=== PATIENT | male | born 1985 ===

== ENCOUNTER 2024-06-26 11:08 | Emergency (ER) | payer SELFPAY ==
[2024-06-26 11:13] VITALS: BP 167/93; PULSE 81; RESP 18; TEMP 36.6; O2SAT 97; BMI 28.9
--- NOTE | 2024-06-26 11:13 | ED.ABDPAIN ---
HPI - Abdominal Pain General Chief Complaint: Abdominal Pain Stated Complaint: Abd discomfort Time Seen by Provider: 06/26/24 12:21 History of Present Illness ED Provider: Hal HPI narrative: 38 y/o M patient; without significant PMH; presents from home reporting two days of upper abdominal pain associated with nausea without vomiting. Otherwise denies: diarrhea, fever or chills, SOB, cough/congestion. No known sick contacts. No prior abdominal surgeries. Occasional alcohol use. Denies NSAID use. Non-smoker. Related Data Previous Rx's ?Medication ?Instructions ?Recorded famotidine 40 mg tablet 40 mg PO DAILY #30 tabs 06/26/24 ondansetron HCl 4 mg tablet 4 mg PO Q8H PRN nausea and 06/26/24 vomiting #14 tabs Allergies Allergy/AdvReac Type Severity Reaction Status Date / Time No Known Allergies Allergy Verified 06/26/24 11:15 Review of Systems Review of Systems Yes all other systems are reviewed and are negative Denies Sensory deficit (Neuro) [facility] Past Medical History Attestation statement: The following information was validated with the patient. Source: old records reviewed Social History Social History Advance Directives: No Physical Exam ED Vital Signs: Vital Signs - 24 hr 06/26/24 11:13 06/26/24 12:17 06/26/24 14:13 Temperature 97.9 F Pulse Rate 81 68 74 Respiratory Rate 18 16 16 Blood Pressure 167/93 H 159/95 H 152/94 H Pulse Oximetry 97 100 98 Oxygen Delivery Method Room Air Room Air Room Air BMI result Body Mass Index 28.9 Patient is afebrile and hemodynamically stable. Const General: cooperative and comfortable Orientation/consciousness: patient oriented x3 HENMT Head: Yes normal to inspection and Yes atraumatic Eyes General: appearance normal, both eyes and all related structures Pupils: Equal, round and reactive pupils present EOM: EOMs intact bilaterally Neck Neck: Yes normal visual inspection, Yes full ROM, Yes supple and No tender Chest Chest palpation & inspection: normal inspection of the chest and normal palpation of entire chest wall Resp Effort & Inspection: normal respiratory effort, able to speak in complete sentences and no respiratory distress Auscultation: clear to auscultation bilaterally Cardio Rate: regular rate Rhythm: regular rhythm Peripheral pulses: Peripheral pulses 2+ throughout GI Inspection: Yes normal to inspection, No Abdominal wall edema and No distended Palpation (GI): Soft to palpation, not firm, nontender, no guarding and not rigid Auscultation: normal bowel sounds Back/Spine/Pelvis Back: No back tenderness Neuro General: patient oriented x3 Cranial nerves: Yes Equal, round and reactive pupils present Motor exam (neuro): 5/5 motor strength present throughout Sensory Exam: No Sensory deficit (Neuro) Course Course Course Narrative: This is a Rapid Medical Examination (RME) performed by Joseluis Bender PA-C in triage. Full HPI, ROS, assessment and treatment plan per primary provider in the Main ED. 38 yo Trinid[place] speaking male presenting to the ER for evaluation of upper abdominal pain and nausea x2 days. History of gastritis and it feels similar. No vomiting or diarrhea. VSS in triage. He appears well. Plan: lab workup, imaging is deferred for now Reevaluation(s) Reevaluation #1: Patient is afebrile and hemodynamically stable. Reviewed triage labs. No leukocytosis. Normal lipase. Magnesium 1.4 - repleted. UA unremarkable. COVID negative. Provided symptom control with famotidine. Plan: Discharge to home with PCP and GI follow up Return precautions given Rx famotidine and zofran sent to pharmacy Medical Decision Making Lab Data 06/26/24 11:33 06/26/24 11:33 Labs: Lab Results 06/26/24 Range/Units 11:33 WBC 5.2 (4.8-10.8) X10*3/uL RBC 4.72 (4.60-5.80) X10*6/uL Hgb 14.7 (14.0-18.0) g/dl Hct 40.8 L (42.0-52.0) % MCV 86.4 (80.0-98.0) fL MCH 31.1 (27.0-33.0) pg MCHC 36.0 (31.0-36.0) g/dl RDW 12.2 (11.0-16.0) % Plt Count 222 (160-400) X10*3/uL MPV 9.6 (9.4-12.4) fL Immature Gran % (Auto) 0.6 H (0.0-0.4) % Neut % (Auto) 66.8 (45-73) % Lymph % (Auto) 22.5 (20-40) % Rains % (Auto) 8.7 (2-11) % Eos % (Auto) 0.6 (0-4) % Baso % (Auto) 0.8 (0-2) % Lymph # (Auto) 1.2 (1.2-4.9) X10*3/uL Rains # (Auto) 0.5 (0.1-1.2) X10*3/uL Eos # (Auto) 0.0 (0.0-0.4) X10*3/uL Baso # (Auto) 0.0 (0.0-0.2) X10*3/uL Abs Immat Gran (auto) 0.03 (0.00-0.03) X10*3/uL Absolute Neuts (auto) 3.5 (2.0-8.3) x10*3/uL Absolute Nucleated RBC 0.000 (0.0-0.012) X10*3/uL Nucleated RBC % (auto) 0.0 (0.0-0.2) /100WBC Sodium 142 (135-145) mmol/L Potassium 3.6 (3.3-5.1) mmol/L Chloride 105 (96-108) mmol/L Carbon Dioxide 28 (22-29) mmol/L Anion Gap 13 (12-20) BUN 9 (9-16) mg/dL Creatinine 0.85 (0.5-1.4) mg/dL Estim Creat Clear Calc 107.9 Estimated GFR > 60 Random Glucose 104 (60-115) mg/dL Calcium 8.5 (8.4-10.2) mg/dL Magnesium 1.4 L* (1.6-2.6) mg/dL Total Bilirubin 0.7 (0.0-1.0) mg/dL Direct Bilirubin 0.2 (0.0-0.5) mg/dL AST 34 (5-37) U/L ALT 46 H (0-40) U/L Alkaline Phosphatase 84 (39-117) U/L Total Protein 7.2 (6.5-8.0) g/dL Albumin 4.0 (3.5-5.0) g/dL Lipase 22 (8-78) U/L Urine Color Yellow Urine Appearance Clear Urine pH 7.5 (5.0-9.0) Ur Specific [place] 1.015 (1.005-1.025) Urine Protein Negative (Neg-Trace) mg/dL Urine Glucose (UA) Negative (Negative) mg/dL Urine Ketones Negative (Negative) mg/dL Urine Blood Negative (Negative) Urine Nitrite Negative (Negative) Ur Leukocyte Esterase Negative (Negative) COVID-19 (ERIKA) Negative (Negative) COVID-19 Clin Com See Note Discharge Plan Discharge Clinical Impression: Abdominal pain Patient Disposition: Home, Self-Care Instructions: Gastritis (DC) Additional Instructions: As we discussed, you were seen for abdominal pain. Your labs were reassuring. A prescription for a medication called Famotidine was sent to your pharmacy. Take this once a day until you follow up with GI. A prescription for a medication called Zofran was sent to your pharmacy. This is for nausea. Take this every 8 hours if you are having nausea. Follow up with GI and your PCP within the next 1 - 2 days for re-evaluation. Return to the emergency department for: Worsening abdominal pain Fever Vomiting Prescriptions: New famotidine 40 mg tablet 40 mg PO DAILY Qty: 30 0RF ondansetron HCl 4 mg tablet 4 mg PO Q8H PRN (Reason: nausea and vomiting) Qty: 14 0RF Referrals: Linda Howell MD [Physician] - 2 days Print Language: Trinidadian
[2024-06-26 11:38] LABS: MANUAL DIFF FLAG NO
[2024-06-26 11:40] LABS: Basophils Percent Auto 0.8 % (0-2); Eosinophils Percent Auto 0.6 % (0-4); Hematocrit 40.8 % (42.0-52.0); Hemoglobin 14.7 g/dl (14.0-18.0); Imm Gran Abs Auto 0.03 X10*3/uL (0.00-0.03); Imm Gran Pct Auto 0.6 % (0.0-0.4); Lymphocytes Absolute Auto 1.2 X10*3/uL (1.2-4.9); Lymphocytes Percent Auto 22.5 % (20-40); Mean Corpuscular Hemoglobin 31.1 pg (27.0-33.0); Mean Corpuscular Volume 86.4 fL (80.0-98.0); Mean Platelet Volume 9.6 fL (9.4-12.4); Monocytes Absolute Auto 0.5 X10*3/uL (0.1-1.2); Monocytes Percent Auto 8.7 % (2-11); Neutrophils Absolute Auto 3.5 x10*3/uL (2.0-8.3); Neutrophils Percent Auto 66.8 % (45-73); Platelet Count 222 X10*3/uL (160-400); Red Blood Count 4.72 X10*6/uL (4.60-5.80); Red Cell Distribution Width 12.2 % (11.0-16.0); White Blood Count 5.2 X10*3/uL (4.8-10.8)
[2024-06-26 11:41] LABS: Appearance Urine Clear; Color Urine Yellow; Glucose Urine UA Negative (Negative); Leukocyte Esterase Urine Negative (Negative); Nitrite Urine Negative (Negative); PH 7.5 (5.0-9.0); Specific Gravity - Urine 1.015 (1.005-1.025); Urine Blood Negative (Negative); Urine Ketones Negative (Negative); Urine Protein Negative (Neg-Trace)
[2024-06-26 11:55] LABS: COVID-19 Test Negative (Negative); IDNOW Serial# 152EDE1D
[2024-06-26 11:57] LABS: Alanine Aminotransferase 46 U/L (0-40); Alkaline Phosphatase 84 U/L (39-117); Anion Gap 13 (12-20); Aspartate Amino Transferase 34 U/L (5-37); Bilirubin Direct 0.2 mg/dL (0.0-0.5); Bilirubin Total 0.7 mg/dL (0.0-1.0); Blood Urea Nitrogen 9 mg/dL (9-16); Calcium 8.5 mg/dL (8.4-10.2); Carbon Dioxide 28 mmol/L (22-29); Chloride 105 mmol/L (96-108); Creatinine Clr Calc Pharmacy 107.9; Estimated Glomerular Filt Rate > 60; Glucose Random 104 mg/dL (60-115); Lipase 22 U/L (8-78); Potassium 3.6 mmol/L (3.3-5.1); Sodium 142 mmol/L (135-145); Total Protein 7.2 g/dL (6.5-8.0)
[2024-06-26 11:59] LABS: Magnesium 1.4 mg/dL (1.6-2.6)
[2024-06-26 12:17] VITALS: BP 159/95; PULSE 68; RESP 16; O2SAT 100
[2024-06-26 14:13] VITALS: BP 152/94; PULSE 74; RESP 16; O2SAT 98
[2024-06-26] MEDS: Famotidine 20 MG TABLET 40 MG PO (16:05)
[2024-06-26] MEDS: Magnesium Oxide 400 MG TABLET 800 MG PO (16:05)
[2024-06-26 16:51] VITALS: BP 150/72; PULSE 83; RESP 16; TEMP 36.4; O2SAT 96
== END 2024-06-26 16:52 | disposition home or self-care (01) ==
PROVIDERS: Physician Assistant; Emergency Provider Emergency Medicine
DX: R10.10 Upper abdominal pain, unspecified (principal); R11.0 Nausea; Z11.52 Encounter for screening for COVID-19; Z79.899 Other long term (current) drug therapy
CPT/HCPCS: 80048; 80076; 81003; 83690; 83735; 85025; 87635; 99283; 99284

== ENCOUNTER 2025-10-06 06:47 | Inpatient (IN) | payer MEDICAID, OTHER, SELFPAY ==
[2025-10-06] VITALS (14 sets, daily range): BP systolic 107–154; BP diastolic 61–97; PULSE 70–110; RESP 16–20; TEMP 36.3–37.9; O2SAT 91–99; BMI 30.4; BMI 30.6
--- NOTE | ~2025-10-06 | CT_ITS ---
CLINICAL HISTORY: RLQ pain CT abdomen and pelvis with contrast Comparison: None provided Findings: Bibasilar dependent atelectasis. The gallbladder and solid organs are within normal limits. No renal stones. Fluid-filled nondilated nonspecific small-bowel loops noted. Distended fluid and air-filled inflamed appendix measuring up to 1.5 cm in diameter compatible with acute appendicitis. No perforation or abscess noted. Urinary bladder wall thickening. Cystitis or other bladder pathology can not be excluded. The bones are intact. Degenerative change noted within the spine. IMPRESSION: 1. Distended fluid and air-filled inflamed appendix measuring up to 1.5 cm in diameter compatible with acute appendicitis. 2. Urinary bladder wall thickening. Cystitis or other bladder pathology can not be excluded. This document has been electronically signed by: Britton Mccarty MD on 10/06/2025 09:19:20
--- OUTSIDE RECORDS SUMMARY | 2025-10-06 07:28 | XMS_ITS | Clinical Summary ---
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 Role Phone Unavailable Primary Care Provider Unavailabl e Social History Tobacco Use Types Packs/Day Years Used Date Smoking Tobacco: Never Assessed Sex and Gender Information Value Date Recorded Sex Assigned at Not on file Legal Sex Male 3:09 PM EDT Gender Identity Not on file Sexual Orientation Not on file Plan of Treatment Health Maintenance Due Date Last Done Comments Depression Screening 1983 Lipid Panel 1983 Disability Screening 1983 Alcohol/Substance Use Screening 1995 Tobacco Screening 1995 Family Planning (PISQ) 1998 HPV Vaccines (1 - Male 3-dos e series) 1998 DTaP/Tdap/Td Vaccines (1 - Tdap) 2002 Hepatitis B Vaccines (1 of 3 - 19+ 3-dose series) 2002 COVID-19 Vaccine (1 - 2024-2 6 season) 2025 Influenza Vaccine (#1) 2025 Zoster Vaccines (1 of 2) 2033 RSV Patients and Pa tients Aged 60 years or older (1 - 1-dose 75+ series) 2058 HIB Vaccines Aged Out No longer eligi ble based on patient's age to complete this topic Hepatitis A Vaccines Aged Out No long er eligible based on patient's age to complete this topic IPV Vaccines Aged Out No longer eligi ble based on patient's age to complete this topic Meningococcal B Vaccine Aged Out No l onger eligible based on patient's age to complete this topic Meningococcal Vaccine Aged Out No jessica brenda eligible based on patient's age to complete this topic Pneumococcal Vaccine: Pediat rics (0 to 5 Years) and At-Risk Patients (6 to 49) Years Aged Out No longer eligible b ased on patient's age to complete this topic RSV under 20 months Aged Out No longe r eligible based on patient's age to complete this topic Rotavirus Vaccines Aged Out No longer eligible based on patient's age to complete this topic
--- OUTSIDE RECORDS SUMMARY | 2025-10-06 07:28 | XMS_ITS | Encounter Summary ---
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 Role Phone Unavailable Primary Care Provider Unavailabl e Reason for Visit * Reason Onset Date Comments New Patient Appt 04/11/2023 Encounter Details Date Type Department Care Team (Late st Contact Info) Description 04/11/2023 Telephone [facility] [address], [place] [phone] Xavier Travis MD [address] [place], [place] [phone] New Patient Appt Social History Tobacco Use Types Packs/Day Years Used Date Smoking Tobacco: Never Assessed Sex and Gender Information Value Date Recorded Sex Assigned at Not on file Legal Sex Male 3:09 PM EDT Gender Identity Not on file Sexual Orientation Not on file documented as of this encounter Miscellaneous Notes * Telephone Encounter - Gautam Cartwright - 04/11/2023 3:09 PM EDT Tc to Glenn, to Offer DBA Appt; Pt responded and was informed that we do not take his insurance toplease change to C3; once the process is complete, to please call back at [phone] to get appt as soon as possible. documented in this encounter Plan of Treatment Not on file documented as of this encounter Visit Diagnoses Not on filedocumented in this encounter
[2025-10-06 07:33] LABS: Hematocrit 46.2 % (42.0-52.0); Hemoglobin 16.3 g/dl (14.0-18.0); Imm Gran Abs Auto 0.06 X10*3/uL (0.00-0.03); Imm Gran Pct Auto 0.4 % (0.0-0.4); Lymphocytes Absolute Auto 0.9 X10*3/uL (1.2-4.9); MANUAL DIFF FLAG NO; Mean Corpuscular HGB Conc 35.3 g/dl (31.0-36.0); Mean Corpuscular Hemoglobin 30.5 pg (27.0-33.0); Mean Corpuscular Volume 86.5 fL (80.0-98.0); NRBC Abs Auto 0.000 X10*3/uL (0.0-0.012); NRBC Pct Auto 0.0 /100WBC (0.0-0.2); Platelet Count 257 X10*3/uL (160-400); Red Blood Count 5.34 X10*6/uL (4.60-5.80); White Blood Count 14.1 X10*3/uL (4.8-10.8)
[2025-10-06 07:35] LABS: Appearance Urine Clear; Glucose Urine UA Negative (Negative); PH 6.5 (5.0-9.0); Specific Gravity - Urine 1.015 (1.005-1.025); UMIC TRIGGER UACC YES
--- NOTE | 2025-10-06 07:43 | ED_ITS ---
HPI - General Adult General Chief complaint: Abdominal Pain Stated complaint: side pain Time Seen by Provider: 10/06/25 07:43 History of Present Illness ED Provider: Arina BENSON narrative: The patient is an otherwise healthy 40-year-old who says that yesterday he had some generalized abdominal pain which has migrated to the right lower quadrant. He has a lot of pain in the right lower quadrant. He has had some nausea and vomiting although he is not currently nauseated. He does not think he has had a fever. He says he has no significant past medical history. He has never had any abdominal surgeries. No urinary symptoms. No chest pain, cough, sputum. Related Data Previous Rx's ?Medication ?Instructions ?Recorded famotidine 40 mg tablet 40 mg PO DAILY #30 tabs 06/10 05/02 ondansetron HCl 4 mg tablet 4 mg PO Q8H PRN nausea and 06/26/24 vomiting #14 tabs Allergies Allergy/AdvReac Type Severity Reaction Status Date / Time No Known Allergies Allergy Verified 10/06/25 07:02 Review of Systems 2 Review of Systems: Yes all other systems are reviewed and are negative [facility] Social History Social History Smoked in Last 30 Days: No Use of substances other than those prescribed or required for medical reasons: No Advance Directives: No Advance Directives Information Provided: Yes Do you have a plan to hurt others: No Plan Physical Exam ED Vital Signs: Vital Signs - 24 hr 10/06/25 07:00 10/06/25 07:35 10/06/25 07:50 Temperature 97.7 F 98.7 F Pulse Rate 70 71 73 Respiratory Rate 20 20 20 Blood Pressure 144/77 H 146/83 H 151/87 H Pulse Oximetry 98 96 97 Oxygen Delivery Method Room Air Room Air Room Air BMI result Body Mass Index 30.4 Const Other: The patient is awake, alert, pleasant, cooperative. He looks mildly uncomfortable. Orientation/consciousness: patient oriented x3 HENMT Other: The face is symmetrical. ?Mucous membranes moist. Eyes Other: Pupils are round equal, conjunctivae are clear, extraocular movements intact Neck Neck: Yes normal visual inspection and Yes full ROM Resp Effort & Inspection: normal respiratory effort Auscultation: clear to auscultation bilaterally Cardio Rate: regular rate Rhythm: regular rhythm Heart sounds: S1 normal heart sound present and S2 normal heart sound present GI Other: The patient is tender in the right lower quadrant. Skin Other: The skin is dry and unremarkable Neuro General: patient oriented x3, tone normal, moves all extremities, no focal motor deficits and CN's II-XI intact bilaterally Extrem Other: Extremities unremarkable Medications Administered Discontinued Medications Generic Name Dose Route Start Last Admin Trade Name Freq PRN Reason Stop Dose Admin Sodium Chloride 1,000 mls @ 999 mls/hr 10/06/25 08:00 10/06/25 08:24 Ns IV 10/06/25 09:00 999 mls/hr .Q1H1M JOSEPH Administration Iohexol 100 ml 10/06/25 08:22 10/06/25 08:22 Iohexol 350 Mg/Ml 100 Ml Infus..Btl IV 10/06/25 08:23 85 ml ONCE ONE Administration Morphine Sulfate 4 mg 10/06/25 07:49 10/06/25 08:24 Morphine Sulfate 4 Mg/Ml Cartridge IVPUSH 10/06/25 07:50 4 mg ONCE ONE Administration Protocol Ondansetron HCl 4 mg 10/06/25 07:49 10/06/25 08:24 Ondansetron Hcl 4 Mg/2 Ml Vial IVPUSH 10/06/25 07:50 4 mg ONCE ONE Administration Medical Decision Making Medical Decision Making [facility] Narrative: The patient is a generally healthy 40-year-old man on no medications and who has no previous abdominal surgeries who presents with a history highly suggestive of acute appendicitis and an exam consistent with possible acute appendicitis. A CT scan was done that shows unruptured [place] [id number]. The the patient was given morphine and ondansetron and IV fluids. Dr. Martínez of General surgery was informed and will be admitting the patient. We will also be giving ceftriaxone and metronidazole. Lab Data 10/06/25 07:25 10/06/25 07:25 Labs: Lab Results 10/06/25 Range/Units 07:25 WBC 14.1 H (4.8-10.8) X10*3/uL RBC 5.34 (4.60-5.80) X10*6/uL Hgb 16.3 (14.0-18.0) g/dl Hct 46.2 (42.0-52.0) % MCV 86.5 (80.0-98.0) fL MCH 30.5 (27.0-33.0) pg MCHC 35.3 (31.0-36.0) g/dl RDW 12.7 (11.0-16.0) % Plt Count 257 (160-400) X10*3/uL MPV 9.6 (9.4-12.4) fL Immature Gran % (Auto) 0.4 (0.0-0.4) % Neut % (Auto) 87.5 H (45-73) % Lymph % (Auto) 6.0 L (20-40) % [place] % (Auto) 5.6 (2-11) % Eos % (Auto) 0.1 (0-4) % Baso % (Auto) 0.4 (0-2) % Lymph # (Auto) 0.9 L (1.2-4.9) X10*3/uL [place] # (Auto) 0.8 (0.1-1.2) X10*3/uL Eos # (Auto) 0.0 (0.0-0.4) X10*3/uL Baso # (Auto) 0.1 (0.0-0.2) X10*3/uL Abs Immat Gran (auto) 0.06 H (0.00-0.03) X10*3/uL Absolute Neuts (auto) 12.3 H (2.0-8.3) x10*3/uL Absolute Nucleated RBC 0.000 (0.0-0.012) X10*3/uL Nucleated RBC % (auto) 0.0 (0.0-0.2) /100WBC Sodium 133 L (135-145) mmol/L Potassium 4.2 (3.3-5.1) mmol/L Chloride 97 (96-108) mmol/L Carbon Dioxide 25 (22-29) mmol/L Anion Gap 15 (12-20) BUN 11 (9-16) mg/dL Creatinine 0.80 (0.5-1.4) mg/dL Estim Creat Clear Calc 111.1 Estimated GFR > 60 Random Glucose 137 H (60-115) mg/dL Calcium 9.3 D (8.4-10.2) mg/dL Total Bilirubin 0.9 (0.0-1.0) mg/dL Direct Bilirubin 0.3 (0.0-0.5) mg/dL AST 39 H (5-37) U/L ALT 48 H (0-40) U/L Alkaline Phosphatase 118 H (39-117) U/L Total Protein 8.0 (6.5-8.0) g/dL Albumin 4.4 (3.5-5.0) g/dL Lipase 21 (8-78) U/L Urine Color Yellow Urine Appearance Clear Urine pH 6.5 (5.0-9.0) Ur Specific [place] 1.015 (1.005-1.025) Urine Protein 30 (1+) H (Neg-Trace) mg/dL Urine Glucose (UA) Negative (Negative) mg/dL Urine Ketones Negative (Negative) mg/dL Urine Blood Negative (Negative) Urine Nitrite Negative (Negative) Ur Leukocyte Esterase Negative (Negative) Urine RBC 0-2 (0-2) /HPF Urine WBC 0-5 (0-5) /HPF Ur Squamous Epith Cells 0-2 (0-2) /HPF Urine Bacteria None Seen (None Seen) Hyaline Casts 0-2 (0-2) /LPF Discharge Plan Discharge Patient Disposition: Admitted As Inpatient Print Language: [place] Island[place]
[2025-10-06 07:49] LABS: Alanine Aminotransferase 48 U/L (0-40); Albumin Level 4.4 g/dL (3.5-5.0); Alkaline Phosphatase 118 U/L (39-117); Anion Gap 15 (12-20); Aspartate Amino Transferase 39 U/L (5-37); Blood Urea Nitrogen 11 mg/dL (9-16); Calcium 9.3 mg/dL (8.4-10.2); Carbon Dioxide 25 mmol/L (22-29); Chloride 97 mmol/L (96-108); Creatinine Clr Calc Pharmacy 111.1; Estimated Glomerular Filt Rate > 60; Lipase 21 U/L (8-78); Potassium 4.2 mmol/L (3.3-5.1); Sodium 133 mmol/L (135-145); Total Protein 8.0 g/dL (6.5-8.0)
[2025-10-06] MEDS: iohexoL 350 MG/ML 100 ML INFUS..BTL IV (08:22)
[2025-10-06] MEDS: metroNIDAZOLE/NS 500 MG/100 ML PIGGYBACK 100 MG IV (10:13)
--- NOTE | 2025-10-06 11:38 | PM.HPGS ---
History of Present Illness History of Present Illness Date of Service: 10/06/25 Chief complaint: side pain Narrative: Glenn Platt is a 40 year old male 2-3 day history of abdominal pain that originated in periumbilical region gradually localized to the right lower quadrant. He denies any fevers chills nausea or vomiting. He denies any history of abdominal trauma or previous abdominal surgery. CT scan of his abdomen and pelvis was indicative of acute appendicitis. Review of Systems Review of Systems: Yes all other systems are reviewed and are negative [facility] Social History Social History Smoked in Last 30 Days: No Use of substances other than those prescribed or required for medical reasons: No Advance Directives: No Advance Directives Information Provided: Yes Do you have a plan to hurt others: No Plan Meds Allergies Allergy/AdvReac Type Severity Reaction Status Date / Time No Known Allergies Allergy Verified 10/06/25 07:02 Physical Exam Vital Signs: Vital Signs: Last Vital Signs Temp 98.7 F 10/06/25 07:50 Pulse 79 10/06/25 10:27 Resp 18 10/06/25 10:27 BP 154/88 H 10/06/25 10:27 Pulse Ox 98 10/06/25 10:27 O2 Del Method Room Air 10/06/25 10:27 BMI result Body Mass Index 30.4 Const: General: cooperative and no acute distress Nutritional Appearance: obese Orientation/consciousness: oriented to person, oriented to place and oriented to time HEENT: Head: Yes normal to inspection, Yes normocephalic and Yes atraumatic Eyes: General: appearance normal, both eyes and all related structures Pupils: Equal, round and reactive pupils present EOM: EOMs intact bilaterally Neck: Neck: Yes normal visual inspection Chest: Chest palpation & inspection: normal inspection of the chest Resp: Effort & Inspection: normal respiratory effort and able to speak in complete sentences Cardio: Rate: regular rate Rhythm: regular rhythm GI: Other: Obese soft diffusely nontender nondistended. Tender to palpation that McBurney's point no scars masses or hernias. No evidence of hepatosplenomegaly. Neuro: General: oriented to person, oriented to place and oriented to time Cranial nerves: Yes CN's II-XII intact bilaterally and Yes Equal, round and reactive pupils present Results Results Labs: Short CBC 10/06/25 Range/Units 07:25 WBC 14.1 H (4.8-10.8) X10*3/uL Hgb 16.3 (14.0-18.0) g/dl Hct 46.2 (42.0-52.0) % Plt Count 257 (160-400) X10*3/uL BMP 10/06/25 07:25 Sodium 133 L Potassium 4.2 Chloride 97 Carbon Dioxide 25 BUN 11 Creatinine 0.80 Calcium 9.3 D Liver Function 10/06/25 Range/Units 07:25 Total Bilirubin 0.9 (0.0-1.0) mg/dL Direct Bilirubin 0.3 (0.0-0.5) mg/dL AST 39 H (5-37) U/L ALT 48 H (0-40) U/L Alkaline Phosphatase 118 H (39-117) U/L Albumin 4.4 (3.5-5.0) g/dL Urine 10/06/25 Range/Units 07:25 Urine Color Yellow Urine Appearance Clear Urine pH 6.5 (5.0-9.0) Ur Specific [place] 1.015 (1.005-1.025) Urine Protein 30 (1+) H (Neg-Trace) mg/dL Urine Glucose (UA) Negative (Negative) mg/dL Assessment and Plan (1) Acute appendicitis: Qualifiers: Acute appendicitis type: other Qualified Code(s): K35.890 - Other acute appendicitis without perforation or gangrene Status: Acute Plan With the assistance manager of network I reviewed with the patient the nature of laparoscopic possible open appendectomy. I also reviewed with him in detail of the risks are involved. These include but are not limited to the risk of bleeding the risks infection the risk of damage to surrounding structures risk of conversion to an open procedure the risks of chronic pain the risk of appendiceal stump leak and the risk that he might need further procedures in the future all reviewed with him in detail. He told me he understood. He told me he considered his options. He told me understood and accepted the risks of surgery and lastly indicated that he wished to proceed with operative intervention. Quality Stroke Does the patient have a stroke diagnosis?: No VTE Prior VTE?: No VTE Risk Level:: Surgical - low VTE Device Contraindication: N/A - Device Ordered VTE Drug Contraindication: N/A - Med Ordered Procedures Date of Service Date of Service: 10/06/25
--- NOTE | 2025-10-06 12:07 | PHA.MEDREC ---
Pharmacy Consult ? Medication Reconciliation Pharmacy has completed the medication reconciliation. Patient confirmed via paper coater that he does not take any medication at home.
--- NOTE | 2025-10-06 13:03 | HO.ANESPROP2 ---
HPI - Anesthesia Eval Consult details Narrative: Acute appendicitis PMFSH Active Problems Active Problems: All Active Problems Acute appendicitis (Acute) Family History Family history of problems with anesthesia: No Surgical History History of Problems with Anesthesia: No Social History Social History Smoked in Last 30 Days: No Use of substances other than those prescribed or required for medical reasons: No Advance Directives: No Advance Directives Information Provided: Yes Do you have a plan to hurt others: No Plan Meds Allergies Allergy/AdvReac Type Severity Reaction Status Date / Time No Known Allergies Allergy Verified 10/06/25 07:02 Home Medications ?Medication ?Instructions ?Recorded ?Confirmed ?Last Taken ?Type No Known Home Meds 10/06/25 10/06/25 Unknown History Exam Height,Weight and Vital Signs: Height 5 ft 3 in Weight 77.9 kg Last Vital Signs Temp 100.2 F 10/06/25 11:41 Pulse 91 10/06/25 11:41 Resp 16 10/06/25 11:41 BP 149/97 H 10/06/25 11:41 Pulse Ox 96 10/06/25 11:41 O2 Del Method Room Air 10/06/25 11:41 Pertinent Lab Results Pertinent Lab Results: Laboratory Tests 10/06/25 07:25 WBC 14.1 H RBC 5.34 Hgb 16.3 Hct 46.2 MCV 86.5 MCH 30.5 MCHC 35.3 RDW 12.7 Plt Count 257 MPV 9.6 Immature Gran % (Auto) 0.4 Neut % (Auto) 87.5 H Lymph % (Auto) 6.0 L [place] % (Auto) 5.6 Eos % (Auto) 0.1 Baso % (Auto) 0.4 Lymph # (Auto) 0.9 L [place] # (Auto) 0.8 Eos # (Auto) 0.0 Baso # (Auto) 0.1 Abs Immat Gran (auto) 0.06 H Absolute Neuts (auto) 12.3 H Absolute Nucleated RBC 0.000 Nucleated RBC % (auto) 0.0 Sodium 133 L Potassium 4.2 Chloride 97 Carbon Dioxide 25 Anion Gap 15 BUN 11 Creatinine 0.80 Estim Creat Clear Calc 111.1 Estimated GFR > 60 Random Glucose 137 H Calcium 9.3 D Total Bilirubin 0.9 Direct Bilirubin 0.3 AST 39 H ALT 48 H Alkaline Phosphatase 118 H Total Protein 8.0 Albumin 4.4 Lipase 21 Urine Color Yellow Urine Appearance Clear Urine pH 6.5 Ur Specific [place] 1.015 Urine Protein 30 (1+) H Urine Glucose (UA) Negative Urine Ketones Negative Urine Blood Negative Urine Nitrite Negative Ur Leukocyte Esterase Negative Urine RBC 0-2 Urine WBC 0-5 Ur Squamous Epith Cells 0-2 Urine Bacteria None Seen Hyaline Casts 0-2 Airway Mallampati Class: II TM Dist: >3cm Neck ROM: Full Loose/Missing/Broken Teeth: No Heart: RRR Lungs: CTA Assessment and Plan Assessment Anesthesia Assessment: Anesthesia Plan Discussed and Chart Reviewed Final Anesthetic Review Family History of Problems with Anesthesia: No History of Problems with Anesthesia: No NPO: Yes ASA Class: I and Emergency Final Preanesthetic Review: No Changes in Pt Med Stat, Meds/Allgs Chart Reviewed, Consent Obtained/Reviewed and Anes Risks/Benef Reviewed Patient Risk: Low Procedure Risk: Intermediate Anesthetic Plan Anesthetic Plan: GA Disposition: Standard PACU
--- NOTE | 2025-10-06 14:38 | W.PM.OPN ---
Operative Note Operative Note Date of Service: 10/06/25 Narrative: Preoperative diagnosis: Acute appendicitis Postoperative diagnosis: Same Procedure performed: Laparoscopic appendectomy Surgeon: Nikolai Martínez MD Specimen: Appendix Findings: Inflamed distended appendix Anesthesia: GETA Blood Loss: Minimal The patient was brought to the operating room and placed supine on the table. The arms and legs were cushioned appropriately and Venodyne boots were cycled. The patient's abdomen was then prepped and draped in the standard sterile fashion. After this approximately 20 cc of Marcaine without epinephrine were infused in the skin and soft tissue in the infraumbilical region of the patient's abdomen. Through this locally anesthetized site disturbances with created with a 11. Blade following Gerry's lines of the skin. It was carried down with a combination of blunt sharp dissection to the level of the umbilical root which was grasped elevated exposing the median raphe. A stab incision was then created the median raphe and gently spread with a Schnidt clamp allowing access to the peritoneal cavity. A 12 mm trocar port was then placed and CO2 gas was insufflated to create a pneumoperitoneum. Once the anterior abdominal pressure reached approximately 1 5 mmHg the intra-abdominal contents were surveyed with the laparoscope. There is no evidence of injury from placement of either local anesthetic or to the laparoscopic trocar port. Two more 5 mm ports were placed via separate stab incisions under direct observation of the laparoscope. They were in the suprapubic region in the left lower quadrant. The patient was then placed in Trendelenburg position with his left side down. An erythematous and edematous vermiform appendix was discovered in normal anatomic location coming off the base of the cecum. It was partially mobilized from surrounding soft tissue attachments with the Sonicision device and medialized from lateral attachments to the peritoneal cavity. The appendiceal mesentery was also taken down with the Sonicision device. This was done without difficulty. Once the appendix was completely skeletonized down to the base it was elevated in the single firing of an Endo-INÉS universal purple load 45 mm stapler was fired across the appendix at the base. The staple line was inspected and found to be completely intact with no bleeding gaps or openings. The appendix was then placed in Endo-Catch retrieval bag and delivered out of the patient's abdomen and passed off table as a specimen. Final laparoscopic surveillance revealed no evidence of hemorrhage or visceral injury or any other pathology. The fascia underlying the infraumbilical port was closed using 0 Polysorb on a UR 6 needle. All of the incisions were closed with buried 4-0 Monocryl in a subcuticular fashion. Steri-Strips and sterile occlusive dressings were applied. The patient tolerated procedure well, was recovered from anesthesia and taken to the recovery room in good condition. It should be noted that the sponge instrument needle counts were correct in the case and that I directly performed all aspects of the case. Also discussed the details case with the patient afterward.
[2025-10-06] MEDS: 0.9 % Sodium Chloride Flush 3 ML SYRINGE IVFLUSH ×2 (16:30→19:47)
[2025-10-07 03:27] VITALS: BP 122/81; PULSE 79; RESP 16; TEMP 36.5; O2SAT 96
--- NOTE | 2025-10-07 07:37 | PM.PNGS ---
Subjective Subjective Date of Service: 10/07/25 Interval history: He feels well. Has some mild umbilical soreness but has not required any analgesics overnight. Tolerating solid diet without nausea/vomiting. OOB and ambulating without difficulty. Had a BM this morning. Physical Exam Vital Signs: Vital Signs: Last Vital Signs Temp 97.7 F 10/07/25 03:27 Pulse 79 10/07/25 03:27 Resp 16 10/07/25 03:27 BP 122/81 10/07/25 03:27 Pulse Ox 96 10/07/25 03:27 O2 Del Method Room Air 10/07/25 03:27 O2 Flow Rate 2 10/06/25 15:30 BMI result Body Mass Index 30.6 Const: General: comfortable, no acute distress and alert Orientation/consciousness: patient oriented x3 Resp: Effort & Inspection: normal respiratory effort and able to speak in complete sentences GI: Other: dressings intact, moderate ecchymosis of umbilical incision, no erythema Inspection: No distended Palpation (GI): Soft to palpation, Tenderness to palpation present (GI) (mild umbilical tenderness) and no guarding Percussion: Yes normal to percussion Skin: General skin exam: no rashes or lesions noted Neuro: General: patient oriented x3 Extrem: General: Yes no clubbing, cyanosis or edema Objective Data Active Medications Acetaminophen (Acetaminophen 325 Mg Tablet) 650 mg PO Q6H PRN PRN Reason: Pain, Mild 1-3,fever,headache Calcium Carbonate (Calcium Carbonate 750 Mg Tab.Chew) 750 mg PO Q4H PRN PRN Reason: Heartburn Docusate Sodium (Docusate Sodium 100 Mg Capsule) 100 mg PO BID [facility] Last Admin: 10/06/25 19:46 Dose: 100 mg Documented By: CHUCKY Heparin Sodium (Porcine) (Heparin Sodium,Porcine 5,000 Unit/Ml Vial) 5,000 unit SUBCUT Q12H [facility] Last Admin: 10/07/25 02:18 Dose: 5,000 unit Documented By: CHUCKY Hydromorphone HCl (Hydromorphone Hcl 1 Mg/Ml Syringe) 0.5 mg IVPUSH Q4H PRN; Protocol PRN Reason: Pain, Severe (Pain Scale 7-10) Ketorolac Tromethamine (Ketorolac Tromethamine 30 Mg/Ml Vial) 30 mg IVPUSH Q6H PRN PRN Reason: Pain, Mild (Pain Scale 1-3) Magnesium Hydroxide (Milk Of Magnesia 30 Ml Oral.Susp) 30 ml PO DAILY PRN PRN Reason: Constipation Melatonin (Melatonin 3 Mg Tablet) 6 mg PO BEDTIME PRN PRN Reason: Insomnia Naloxone HCl (Naloxone Hcl 0.4 Mg/Ml Vial) 0.04 mg IVPUSH Q5M PRN PRN Reason: Excessive sedation or RR < 8 Omeprazole (Omeprazole 20 Mg Capsule.) 20 mg PO BID@0630,1630 [facility] Last Admin: 10/07/25 05:51 Dose: 20 mg Documented By: CHUCKY Ondansetron HCl (Ondansetron Hcl 4 Mg/2 Ml Vial) 4 mg IVPUSH Q8H PRN PRN Reason: Nausea and Vomiting Sodium Chloride (0.9 % Sodium Chloride Flush 3 Ml Syringe) 3 ml IVFLUSH QSHIFT [facility] Last Admin: 10/06/25 19:47 Dose: 3 ml Documented By: CHUCKY Temazepam (Temazepam 15 Mg Capsule) 15 mg PO BEDTIME PRN PRN Reason: Insomnia Labs 10/06/25 07:25 10/06/25 07:25 Labs: Laboratory Results - last 24 hr 10/06/25 07:25 Anion Gap 15 Estim Creat Clear Calc 111.1 Estimated GFR > 60 Random Glucose 137 H Calcium 9.3 D Total Bilirubin 0.9 Direct Bilirubin 0.3 AST 39 H ALT 48 H Alkaline Phosphatase 118 H Total Protein 8.0 Albumin 4.4 Lipase 21 Urine Color Yellow Urine Appearance Clear Urine pH 6.5 Ur Specific Byars 1.015 Urine Protein 30 (1+) H Urine Glucose (UA) Negative Urine Ketones Negative Urine Blood Negative Urine Nitrite Negative Ur Leukocyte Esterase Negative Urine RBC 0-2 Urine WBC 0-5 Ur Squamous Epith Cells 0-2 Urine Bacteria None Seen Hyaline Casts 0-2 Procedures Date of Service Date of Service: 10/07/25 Progress Note: A&P Assessment and plan (1) Acute appendicitis: Status: Acute (2) S/P laparoscopic appendectomy: Status: Acute Plan POD #1 s/p lap appy for acute uncomplicated appendicitis. Patient is doing well post op- tolerating solid diet with good pain control. Hemodynamically stable with benign abd exam with appropriate post op tenderness. Feels ready for dc to home. Stable for dc to home today with f/u in office in 1 week. Time Spent With Patient Time: Total time managing care of this patient today ____ minutes. Quality Stroke Does the patient have a stroke diagnosis?: No VTE Prior VTE?: No VTE Risk Level:: Surgical - low VTE Device Contraindication: N/A - Device Ordered VTE Drug Contraindication: N/A - Med Ordered
[2025-10-07 07:49] VITALS: BP 129/75; PULSE 76; RESP 18; TEMP 37.1; O2SAT 97
--- NOTE | 2025-10-07 08:49 | HO.POSTANES ---
Post Anesthesia Evaluation Post Anesthesia Evaluation Date of Service: 10/07/25 Vital Signs: Vital Signs Temp Pulse Resp BP Pulse Ox O2 Del Method 10/07/25 07:49 98.7 F 76 18 129/75 97 Room Air 10/07/25 03:27 97.7 F 79 16 122/81 96 Room Air 10/06/25 23:37 97.5 F 82 16 119/68 97 Room Air Anesthesia: General Endotracheal-GETA Mental Status: Awake Pain Control: Satisfactory Nausea/Vomiting: None Hydration: Adequate Anesthesia-Related Issues: No Anes. Related Issues
--- NOTE | 2025-10-07 09:03 | MHC.CM.PN ---
pt dcd home self pror to being seen by cm
[2025-10-07 10:24] VITALS: BP 112/66; PULSE 79; RESP 18; TEMP 36.7; O2SAT 97
[2025-10-07] MEDS: 0.9 % Sodium Chloride Flush 3 ML SYRINGE IVFLUSH (10:26)
--- NOTE | 2025-10-07 10:56 | PM.DS ---
DS: Providers Provider Date of admission: 10/06/25 14:56 Date of discharge: 10/07/25 Primary care physician: Bobby Physician Attending physician on admission: Nikolai Martínez Attending physician on discharge: Nikolai Martínez DS: Diagnosis Discharge Diagnosis (1) Acute appendicitis: Status: Acute (2) S/P laparoscopic appendectomy: Status: Acute DS: Summary Status at Discharge Cognitive/behavioral status at discharge: HPI AT ADMISSION: Glenn Platt is a 40 year old male 2-3 day history of abdominal pain that originated in periumbilical region gradually localized to the right lower quadrant. He denies any fevers chills nausea or vomiting. He denies any history of abdominal trauma or previous abdominal surgery. CT scan of his abdomen and pelvis was indicative of acute appendicitis. Leukocytosis of 14.1. HOSPITAL COURSE: The patient was admitted to the surgical service for further treatment of the acute appendicitis. He elected to proceed with laparoscopic appendectomy. He was added onto the OR schedule for that day. On 10/06/25, a laparoscopic appendectomy was performed by Dr. Martínez without complication. The patient tolerated the procedure well. He had an uncomplicated recovery course. On POD #1, he felt well and was tolerating a solid diet without nausea or vomiting, had good pain control and was ambulating without difficulty. He was hemodynamically stable. His abdomen was benign with appropriate post op tenderness and clean and intact dressings. He felt ready for discharge. He was discharged to home on 10/07/25 in stable condition. He is to follow up in the office in 1 week. Time Attestation Discharge Coordination Time (in mins): 25 Quality: Safe Use of Opioids Does Pt have an Active Cancer Diagnosis on the Problem List?: No Quality: Stroke Does the patient have a stroke diagnosis?: No Physical Exam Vital Signs: Vital Signs: Last Vital Signs Temp 98.0 F 10/07/25 10:24 Pulse 79 10/07/25 10:24 Resp 18 10/07/25 10:24 BP 112/66 10/07/25 10:24 Pulse Ox 97 10/07/25 10:24 O2 Del Method Room Air 10/07/25 10:24 O2 Flow Rate 2 10/06/25 15:30 BMI result Body Mass Index 30.6 Const: General: comfortable, no acute distress and alert Resp: Effort & Inspection: normal respiratory effort GI: Other: soft mild incisional tenderness dressings clean and intact mild umbilical ecchymosis Skin: General skin exam: no rashes or lesions noted DS: Data Data Completed and Pending Pending studies at discharge: Pending at discharge 10/06/25 14:17 Surgical [PTH] Routine Discharge Plan Discharge Anticipated Discharge Date/Time: 10/07/25 07:42 Patient Disposition: Home, Self-Care Discharge Diagnosis: acute appendicitis, s/p laparoscopic appendectomy Referrals: Nikolai Martínez MD [Physician, General Surgery] - 1 Week Physician,Bobby [Primary Care Provider, Medical] - 1 Week Discharge Medications: New oxycodone 5 mg tablet 5 mg PO Q4H PRN (Reason: pain (scale score 7-10)) Qty: 24 0RF Rx Instructions: Partial Fill upon patient request. Discharge Orders: Discharge Order (Routine); Ordered 10/07/25 Ordered By: Tressa Washington Diet: Advance to usual diet Activity on Discharge: No heavy lifting Stand Alone Forms: Patient Portal Discharge page, Work/School Release Print Language: Monegasque Activity Restrictions/Additional Instructions: If the incision area is tender, you may apply an ice pack for short intervals (No more than 20 minutes on, followed by at least 20 minutes off). Do not apply heat. Do not use creams, lotions, or topical antibiotics. Ok to shower. Ok to remove bandaids 10/08/25. You have steri strips (small white strips) covering your incision- these will fall off ~1 week. No heavy lifting (>10lbs) or strenuous activity! Take Tylenol Extra-strength 1-2 tabs every 6 hours for the first day, then as needed. Oxycodone every 6-8 hours as needed for pain. Colace 100 mg every day as needed for constipation. Follow up in office with Dr. Martínez in 1 week. ([phone]) Call Your Doctor If: -Your temperature exceeds 101.5? F -You experience excessive pain or swelling -You have an unexpected reaction to medication -You have excessive bleeding -You experience continued vomiting/nausea -Your incision begins to separate -Your incision shows signs of infection such as increased redness, swelling, excessive pain, drainage (light blood or clear fluid is normal) or heat Care Plan Goals: Return to baseline health and resume normal activities following recovery period. Health Concerns: acute appendicitis Plan of Treatment: s/p laparoscopic appendectomy Assessment: doing well post op Discharge Date/Time: 10/07/25 11:00
== END 2025-10-07 11:00 | disposition home or self-care (01) | DRG 234 ==
LOC: HO.ED 12:22 → HO.SSS 13:23 → HO.SSSA 14:56 → HO.S3 14:58
PROVIDERS: Admitting Provider Surgery; Emergency Provider Emergency Medicine; Visit Provider Surgery
PROC: 0DTJ4ZZ Resection of Appendix, Percutaneous Endoscopic Approach (ICD-10-PCS; CPT 44970; principal; 2025-10-06 12:45)
DX: K35.80 Unspecified acute appendicitis (principal)
CPT/HCPCS: 36415; 74177; 80048; 80076; 81001; 83690; 85025; 88304; 99214; 99284; J0131; J0696; J1644; J1836; J1885; J2003; J2270; J2405; J2704; J3010; Q9967

== ENCOUNTER → 2025-10-06 07:49 | Outpatient (BNV) | payer SELFPAY | PROVIDERS: Emergency Provider Emergency Medicine; Visit Provider Radiology Diagnostic Radiology | DX: N32.89 Other specified disorders of bladder (principal) | CPT/HCPCS: 74177 ==

== ENCOUNTER → 2025-10-06 13:23 | Outpatient (BNV) | payer SELFPAY | PROVIDERS: Emergency Provider Emergency Medicine; Visit Provider Surgery | DX: K35.30 Acute appendicitis with localized peritonitis, without perforation or gangrene (principal) | CPT/HCPCS: 44970; 99238; 99499 ==